=== PATIENT | female | born 1955 | race Caucasian/White ===

== ENCOUNTER 2020-11-14 14:48 | Emergency (ER) | payer OTHER ==
[~2020-11-14 14:48] MED LIST: ACCUPRIL40 MG PO; ALPRAZOLAM0.5 MG PO; BAYER BACK & B1 EACH PO; BYSTOLIC10 MG PO; BYSTOLIC5 MG PO; CELEBREX100 MG PO; COQ-10100 MG PO; EFFEXOR XR 75 M75 MG PO; ENBREL25 MG/0.5 SQ; FEOSOL325 MG PO; FIBER SELECT G1 EACH PO; GLIPIZIDE XL10 MG PO; GLUCOPHAGE500 MG PO; GLUCOTROL 10 MG10 MG PO; HAIR, SKIN & N1 EAC2 PO; HYDRALAZINE HCL25 MG PO; JANUVIA100 MG PO; KEFLEX CAP 500500 MG PO; KEFLEX500 MG PO; KRILL OIL 1,001 EAC1 PO; LACTINEX PACKET1 PKT PO; LEVAQUIN750 MG PO; LISINOPRIL10 MG PO; LYRICA75 MG PO; METFORMIN HCL500 MG PO; MIRAPEX0.5 MG PO; NEXIUM PO; NITROFURANTOIN100 MG PO; NORCO 10-325 T1 EACH PO; NORCO 7.5-3251 EACH PO; OMEGA 3 FISH O1 EACH PO; ORPHENADRINE ER PO; PREVACID30 MG PO; PROTONIX 40 MG40 M1 PO; QUINAPRIL HCL40 MG PO; SANTYL OINT 3030 GM TOP; SANTYL OINT 3030 GM TP; SLOW FE PO; SLOW RELEASE I142 MG PO; SYNTHROID75 MCG PO; TYLENOL 325MG325 MG PO; TYLENOL 500 MG500 MG PO; TYLENOL 8 HOUR650 MG PO; VITAMIN D22000 UNIT PO; VITAMIN D50000 UNIT PO; ZYRTEC10 MG PO
[2020-11-14 17:10] LABS: HEMOGLOBIN 12.4 gm/dl (12.3-15.3); RED BLOOD COUNT 4.14 M/UL (4.00-5.10); WHITE BLOOD COUNT 16.1 K/UL (4.5-11.0)
[2020-11-14 17:37] LABS: BUN/CREATININE RATIO 25 (0-10)
== END 2020-11-14 19:16 | disposition home or self-care (01) ==
LOC: ER1 14:48
PROVIDERS: Physician Assistant
DX: I10 Essential (primary) hypertension (principal); M79.10 Myalgia, unspecified site; E11.9 Type 2 diabetes mellitus without complications; Z90.710 Acquired absence of both cervix and uterus; Z88.0 Allergy status to penicillin; Z88.5 Allergy status to narcotic agent
CPT/HCPCS: 80053; 81001; 85025; 99283

== ENCOUNTER 2021-01-07 00:24 | Inpatient (IN) | payer OTHER ==
[~2021-01-07] VITALS: Ht 167.6 cm; Wt 151.0 kg
[2021-01-07 03:04] LABS: HEMOGLOBIN 13.3 gm/dl (12.3-15.3); RED BLOOD COUNT 4.41 M/UL (4.00-5.10); WHITE BLOOD COUNT 21.9 K/UL (4.5-11.0)
[2021-01-07 03:23] LABS: BUN/CREATININE RATIO 35 (0-10)
[2021-01-07] MEDS ORDERED: MEDROL TAB 4 MG4 MG PO (05:24)
[2021-01-07 05:38] LABS: ADENOVIRUS F 40/41 Not Detected (Negative); ASTROVIRUS Not Detected (Negative); CAMPYLOBACTER Not Detected (Negative); CLOSTRIDIUM DIFFICILE TOX A/B Not Detected (Negative); CRYPTOSPORIDIUM Not Detected (Negative); E.COLI 0157 Not Detected (Negative); ENTAMOEBA HISTOLYTICA Not Detected (Negative); ENTEROAGGREGATIVE E.COLI (EAEC Not Detected (Negative); ENTEROPATHOGENIC E.COLI (EPEC) Not Detected (Negative); ENTEROTOXIGENIC E.COLI (ETEC) Not Detected (Negative); GIARDIA LAMBLIA Not Detected (Negative); NOROVIRUS GI/GII Not Detected (Negative); PLESIOMONAS SHIGELLOIDES Not Detected (Negative); ROTOVIRUS A Not Detected (Negative); SALMONELLA Not Detected (Negative); SAPOVIRUS Not Detected (Negative); SHIG/ENTEROINVAS.ECOLI (EIEC) Not Detected (Negative); SHIGA-LIK TOX.PRO.E.COLI (STEC Not Detected (Negative); VIBRIO Not Detected (Negative); VIBRIO CHOLERAE Not Detected (Negative); YERSINIA ENTEROCOLITICA Not Detected (Negative)
[2021-01-07] MEDS ORDERED: NOVOLOG FL100 UNIT/1 SC (11:15)
[2021-01-07] MEDS ORDERED: VOLTAREN100 GM TP (11:16)
[2021-01-07] MEDS ORDERED: LANTUS100 UNIT/1 SC (14:45)
== END 2021-01-07 17:56 | disposition short-term general hospital (02) | DRG 871 ==
LOC: ER1 00:24 → CCU 03:41 → CDU 03:41 → CCU 06:42
PROVIDERS: Internal Medicine; Physician Assistant; ADMIT Internal Medicine
PROC: 3E033XZ Introduction of Vasopressor into Peripheral Vein, Percutaneous Approach (ICD-10-PCS; principal; 2021-01-07)
PROC: 02HV33Z Insertion of Infusion Device into Superior Vena Cava, Percutaneous Approach (ICD-10-PCS; 2021-01-07)
PROC: B548ZZA Ultrasonography of Superior Vena Cava, Guidance (ICD-10-PCS; 2021-01-07)
DX: A41.9 Sepsis, unspecified organism (principal); J18.9 Pneumonia, unspecified organism; R65.21 Severe sepsis with septic shock; J96.01 Acute respiratory failure with hypoxia; N39.0 Urinary tract infection, site not specified; E87.2 Acidosis; Z68.43 Body mass index [BMI] 50.0-59.9, adult; E66.2 Morbid (severe) obesity with alveolar hypoventilation; L03.116 Cellulitis of left lower limb; J98.11 Atelectasis; L97.919 Non-pressure chronic ulcer of unspecified part of right lower leg with unspecified severity; L97.929 Non-pressure chronic ulcer of unspecified part of left lower leg with unspecified severity; I83.009 Varicose veins of unspecified lower extremity with ulcer of unspecified site; Z20.822 Contact with and (suspected) exposure to COVID-19; E86.0 Dehydration; E87.6 Hypokalemia; E83.42 Hypomagnesemia; M35.3 Polymyalgia rheumatica; E03.9 Hypothyroidism, unspecified; N20.0 Calculus of kidney; M19.90 Unspecified osteoarthritis, unspecified site; I11.9 Hypertensive heart disease without heart failure; E11.40 Type 2 diabetes mellitus with diabetic neuropathy, unspecified; K21.9 Gastro-esophageal reflux disease without esophagitis; R53.83 Other fatigue; B96.89 Other specified bacterial agents as the cause of diseases classified elsewhere; Z74.01 Bed confinement status; Z90.710 Acquired absence of both cervix and uterus; Z79.4 Long term (current) use of insulin; Z79.899 Other long term (current) drug therapy; E11.65 Type 2 diabetes mellitus with hyperglycemia
CPT/HCPCS: 0240U; 36415; 36600; 71045; 71250; 80048; 80053; 81001; 82550; 82553; 82803; 82962; 83605; 83735; 83874; 84484; 85025; 87040; 87070; 87077; 87086; 87186; 87205; 87507; 96365; 96372; 96375; 96376; 99285; A6212; C9113; J1335; J1650; J1720; J3370; J3475; J7030; J7070; Q9967

== ENCOUNTER → 2021-01-22 | Outpatient (CLI) | payer OTHER ==
[~2021-01-22] MED LIST changes: +AMLODIPINE BESYL5 MG PO; +BACTRIM DS TAB1 EACH PO; +CELECOXIB100 MG PO; +IRON 100 PLUS1 EACH PO; +LANTUS100 UNIT/1 SC; +LYRICA150 MG PO; +MEDROL TAB 4 MG4 MG PO; +METHYLPREDNISOLO4 MG PO; +NOVOLOG FL100 UNIT/1 SC; +VENLAFAXINE HC150 M1 PO; +VITAMIN D250 MCG PO; +VOLTAREN100 GM TP
[2021-01-22 12:14] LABS: HEMOGLOBIN 11.3 gm/dl (12.3-15.3); RED BLOOD COUNT 3.82 M/UL (4.00-5.10); WHITE BLOOD COUNT 11.1 K/UL (4.5-11.0)
[2021-01-22 12:37] LABS: BUN/CREATININE RATIO 19 (0-10)
== END ==
LOC: OPSV 01-19 07:00
PROVIDERS: Internal Medicine Infectious Disease
DX: L03.119 Cellulitis of unspecified part of limb (principal)
CPT/HCPCS: 80053; 82550; 85027; 85652; 86140

== ENCOUNTER → 2021-02-02 | Outpatient (CLI) | payer OTHER | LOC: OPSV 01-29 12:19 | DX: L03.115 Cellulitis of right lower limb (principal); L03.116 Cellulitis of left lower limb; E11.621 Type 2 diabetes mellitus with foot ulcer; L97.221 Non-pressure chronic ulcer of left calf limited to breakdown of skin; E66.01 Morbid (severe) obesity due to excess calories | CPT/HCPCS: G0463 ==

== ENCOUNTER 2021-05-11 16:05 | Inpatient (IN) | payer MEDICARE, OTHER ==
[~2021-05-11] VITALS: Ht 165.1 cm; Wt 140.6 kg
[~2021-05-11 16:05] MED LIST changes: -AMLODIPINE BESYL5 MG PO; -BACTRIM DS TAB1 EACH PO; -CELECOXIB100 MG PO; -IRON 100 PLUS1 EACH PO; -LYRICA150 MG PO; -METHYLPREDNISOLO4 MG PO; -VENLAFAXINE HC150 M1 PO; -VITAMIN D250 MCG PO
[2021-05-11 17:04] LABS: HEMOGLOBIN 11.4 gm/dl (12.3-15.3); RED BLOOD COUNT 3.79 M/UL (4.00-5.10); WHITE BLOOD COUNT 17.4 K/UL (4.5-11.0)
[2021-05-11 17:31] LABS: BUN/CREATININE RATIO 17 (0-10)
[2021-05-11] MEDS ORDERED: NITROFURANTOIN100 MG PO (21:06)
[2021-05-11] MEDS ORDERED: MIRAPEX0.5 MG PO (21:07)
[2021-05-11] MEDS ORDERED: QUINAPRIL HCL40 MG PO (21:07)
[2021-05-11] MEDS ORDERED: METHYLPREDNISOLO4 MG PO (21:07)
[2021-05-11] MEDS ORDERED: BYSTOLIC10 MG PO (21:08)
[2021-05-11] MEDS ORDERED: HYDRALAZINE HCL25 MG PO (21:08)
[2021-05-11] MEDS ORDERED: LYRICA150 MG PO (21:08)
[2021-05-11] MEDS ORDERED: VENLAFAXINE HC150 M1 PO (21:09)
[2021-05-11] MEDS ORDERED: SYNTHROID75 MCG PO (21:09)
[2021-05-11] MEDS ORDERED: VITAMIN D250 MCG PO (21:09)
[2021-05-11] MEDS ORDERED: IRON 100 PLUS1 EACH PO (21:10)
[2021-05-11] MEDS ORDERED: CELECOXIB100 MG PO (21:10)
[2021-05-12 01:23] LABS: HEMOGLOBIN 11.2 gm/dl (12.3-15.3); RED BLOOD COUNT 3.7 M/UL (4.00-5.10); WHITE BLOOD COUNT 17.1 K/UL (4.5-11.0)
[2021-05-12] MEDS ORDERED: ALPRAZOLAM0.5 MG PO (13:22)
[2021-05-14 02:28] LABS: HEMOGLOBIN 10.2 gm/dl (12.3-15.3); RED BLOOD COUNT 3.43 M/UL (4.00-5.10)
[2021-05-14 02:29] LABS: WHITE BLOOD COUNT 9.9 K/UL (4.5-11.0)
[2021-05-14 03:06] LABS: BUN/CREATININE RATIO 13 (0-10)
[2021-05-14] MEDS ORDERED: BACTRIM DS TAB1 EACH PO (09:04)
[2021-05-14] MEDS ORDERED: AMLODIPINE BESYL5 MG PO (09:04)
--- NOTE | 2021-05-14 10:47 | NUR ---
PATIENTS ROOM AIR SAT IS 86%
== END 2021-05-14 14:44 | disposition home or self-care (01) | DRG 871 ==
LOC: ER1 16:05 → CDU 18:58 → PROG CARE 18:58
PROVIDERS: Family Medicine; Internal Medicine; ADMIT Internal Medicine
DX: A41.59 Other Gram-negative sepsis (principal); J96.01 Acute respiratory failure with hypoxia; Z68.41 Body mass index [BMI] 40.0-44.9, adult; N17.9 Acute kidney failure, unspecified; L97.919 Non-pressure chronic ulcer of unspecified part of right lower leg with unspecified severity; L97.929 Non-pressure chronic ulcer of unspecified part of left lower leg with unspecified severity; J98.11 Atelectasis; L03.115 Cellulitis of right lower limb; E66.2 Morbid (severe) obesity with alveolar hypoventilation; D84.821 Immunodeficiency due to drugs; N30.00 Acute cystitis without hematuria; E11.65 Type 2 diabetes mellitus with hyperglycemia; I83.009 Varicose veins of unspecified lower extremity with ulcer of unspecified site; E11.40 Type 2 diabetes mellitus with diabetic neuropathy, unspecified; B96.4 Proteus (mirabilis) (morganii) as the cause of diseases classified elsewhere; I11.9 Hypertensive heart disease without heart failure; N20.0 Calculus of kidney; E86.1 Hypovolemia; E03.9 Hypothyroidism, unspecified; M35.3 Polymyalgia rheumatica; M79.7 Fibromyalgia; K21.9 Gastro-esophageal reflux disease without esophagitis; Z79.899 Other long term (current) drug therapy; Z20.822 Contact with and (suspected) exposure to COVID-19; Z79.4 Long term (current) use of insulin; Z90.710 Acquired absence of both cervix and uterus
CPT/HCPCS: 36415; 36600; 51702; 71045; 71250; 80048; 80053; 81001; 82550; 82553; 82803; 82962; 83036; 83605; 83735; 83880; 84100; 84439; 84443; 84484; 85025; 85027; 85610; 86140; 87040; 87077; 87086; 87186; 93005; 96374; 96375; 99285; J1170; J1650; J1720; J1885; J2185; J2270; J2405; J7030; Q9967; U0002

== ENCOUNTER 2022-04-25 13:52 | Inpatient (IN) | payer MEDICARE, OTHER ==
[~2022-04-25] VITALS: Ht 165.1 cm; Wt 154.2 kg
[~2022-04-25 13:52] MED LIST changes: +AMLODIPINE BESYL5 MG PO; +BACTRIM DS TAB1 EACH PO; +CELECOXIB100 MG PO; +HYDRALAZINE HC100 MG PO; +IRON 100 PLUS1 EACH PO; +LYRICA150 MG PO; +METHYLPREDNISOLO4 MG PO; +VENLAFAXINE HC150 M1 PO; +VITAMIN D250 MCG PO
[2022-04-25 15:35] LABS: HEMOGLOBIN 12.3 gm/dl (12.3-15.3); RED BLOOD COUNT 4.18 M/UL (4.00-5.10); WHITE BLOOD COUNT 21.9 K/UL (4.5-11.0)
[2022-04-26 05:17] LABS: HEMOGLOBIN 11.2 gm/dl (12.3-15.3); RED BLOOD COUNT 3.81 M/UL (4.00-5.10); WHITE BLOOD COUNT 16.8 K/UL (4.5-11.0)
[2022-04-26 05:40] LABS: CANDIDA ALBICANS Not Detected (Negative); CANDIDA KRUSEI Not Detected (Negative); CANDIDA TROPICALIS Not Detected (Negative); ESCHERICHIA COLI Not Detected (Negative); HAEMOPHILUS INFLUENZAE Not Detected (Negative); KLEBSIELLA PNEUMONIAE Not Detected (Negative); KPC-CARBAPENEM-RESISTANCE GENE Not Detected (Negative); PROTEUS Not Detected (Negative); PSEUDOMONAS AERUGINOSA Not Detected (Negative); SERRATIA MARCESANS Not Detected (Negative); STAPHYLOCOCCUS Not Detected (Negative); STAPHYLOCOCCUS AUREUS Not Detected (Negative); STREP AGALACTIAE (GROUP B) Not Detected (Negative); STREP PYOGENES (GROUP A) Not Detected (Negative); STREPTOCOCCUS Not Detected (Negative); vanA/B (VANCOMYCIN RESIST GENE Not Detected (Negative)
[2022-04-26 07:09] LABS: KLEBSIELLA OXYTOCA DETECTED (Negative)
[2022-04-26] MEDS ORDERED: PRAMIPEXOLE DI0.5 MG PO (08:45)
[2022-04-26] MEDS ORDERED: MEDROL TAB 4 MG4 MG PO (08:46)
[2022-04-26] MEDS ORDERED: NITROFURANTOIN100 MG PO ×2 (08:47→11:32)
[2022-04-26] MEDS ORDERED: NOVOLOG FL100 UNIT/1 INJ (11:30)
[2022-04-26] MEDS ORDERED: LANTUS SOL100 UNIT/1 SQ (11:31)
--- NOTE | 2022-04-27 17:30 | NUR ---
patient with increased confusion, pulling at tubes and lines bi pap tubing. Call placed to r/lilly patient condition. New orders receives and implemented.
--- NOTE | 2022-04-27 18:30 | NUR ---
patient continues to have confusion and pulling at tubes and wires and trying to get out of bed. Bed alarm on and fuctioing proprerly. Medicatin administered per MD order. Patint remains confused. Call placed to family to sit with patoient, no answer unable to leave voicemaildue to fact voicemail full and cannot accept any messages. New order received for restraints. Orders placed per md and statred on [facility] protocol.
[2022-04-28 03:01] LABS: HEMOGLOBIN 10.3 gm/dl (12.3-15.3); RED BLOOD COUNT 3.62 M/UL (4.00-5.10); WHITE BLOOD COUNT 15.3 K/UL (4.5-11.0)
--- NOTE | 2022-04-28 07:14 | NUR ---
Patient reins confused this am bathed, per staff, continues to fight BIPAP and VS are stable. Contiuing with Ciwa and restarint orders will monitor for changes or improvement.
[2022-04-29 03:32] LABS: HEMOGLOBIN 10.3 gm/dl (12.3-15.3); RED BLOOD COUNT 3.62 M/UL (4.00-5.10)
[2022-04-29 03:34] LABS: WHITE BLOOD COUNT 10.6 K/UL (4.5-11.0)
--- NOTE | 2022-04-29 13:43 | NUR ---
REPORT CALLED TO LAUREN AT PCU. PT TRANSFERRED TO PCU AT THIS TIME.
[2022-04-30 02:33] LABS: HEMOGLOBIN 9.9 gm/dl (12.3-15.3); RED BLOOD COUNT 3.45 M/UL (4.00-5.10)
[2022-05-01 14:10] LABS: LYME TOTAL ANTIBODY EIA Negative (Negative)
== END 2022-04-30 16:41 | disposition expired | DRG 871 ==
LOC: ER1 13:52 → M/S 20:56 → PROG CARE 20:56 → CDU 20:56 → PROG CARE 04-26 07:44 → M/S 04-26 12:22 → PROG CARE 04-29 13:42
PROVIDERS: Internal Medicine; Student in an Organized Health Care Education/Training Program; ADMIT Internal Medicine
PROC: 3E03329 Introduction of Other Anti-infective into Peripheral Vein, Percutaneous Approach (ICD-10-PCS; principal; 2022-04-25)
PROC: 5A09457 Assistance with Respiratory Ventilation, 24-96 Consecutive Hours, Continuous Positive Airway Pressure (ICD-10-PCS; 2022-04-27)
PROC: 5A0935A Assistance with Respiratory Ventilation, Less than 24 Consecutive Hours, High Flow/Velocity Cannula (ICD-10-PCS; 2022-04-29)
PROC: 5A09357 Assistance with Respiratory Ventilation, Less than 24 Consecutive Hours, Continuous Positive Airway Pressure (ICD-10-PCS; 2022-04-30)
DX: A41.50 Gram-negative sepsis, unspecified (principal); G93.41 Metabolic encephalopathy; K85.10 Biliary acute pancreatitis without necrosis or infection; J96.21 Acute and chronic respiratory failure with hypoxia; Z66 Do not resuscitate; Z20.822 Contact with and (suspected) exposure to COVID-19; J96.22 Acute and chronic respiratory failure with hypercapnia; N17.9 Acute kidney failure, unspecified; K80.51 Calculus of bile duct without cholangitis or cholecystitis with obstruction; E87.0 Hyperosmolality and hypernatremia; E66.2 Morbid (severe) obesity with alveolar hypoventilation; F11.20 Opioid dependence, uncomplicated; Z68.43 Body mass index [BMI] 50.0-59.9, adult; R65.20 Severe sepsis without septic shock; M35.3 Polymyalgia rheumatica; E03.9 Hypothyroidism, unspecified; I10 Essential (primary) hypertension; I87.8 Other specified disorders of veins; K21.9 Gastro-esophageal reflux disease without esophagitis; E86.0 Dehydration; G89.4 Chronic pain syndrome; E11.9 Type 2 diabetes mellitus without complications; M19.90 Unspecified osteoarthritis, unspecified site; Z87.440 Personal history of urinary (tract) infections; Z90.710 Acquired absence of both cervix and uterus; Z82.49 Family history of ischemic heart disease and other diseases of the circulatory system; Z99.3 Dependence on wheelchair; Z88.1 Allergy status to other antibiotic agents; Z88.8 Allergy status to other drugs, medicaments and biological substances; Z79.4 Long term (current) use of insulin
CPT/HCPCS: 0240U; 36415; 36600; 70450; 71045; 74018; 76705; 80053; 80307; 81001; 82140; 82150; 82533; 82550; 82553; 82607; 82803; 82962; 82977; 83036; 83605; 83690; 83735; 83880; 84100; 84439; 84443; 84478; 84484; 85025; 86140; 86618; 86666; 86757; 87040; 87077; 87086; 87150; 87186; 93005; 94660; 94760; 96361; 96374; 96375; 96376; 99285; A6212; C9113; G0480; J0696; J1170; J1630; J1650; J2060; J2185; J2270; J2405; J3370; J3411; J3486; J7070